=== PATIENT | female | born 1950 | race Caucasian/White ===

== ENCOUNTER 2022-05-14 14:15 | Emergency (ER) | payer OTHER, MEDICARE, SELFPAY ==
[2022-05-14 14:26] VITALS: BP 133/86; PULSE 79; RESP 18; TEMP 37; O2SAT 100; BMI 17.5
--- NOTE | 2022-05-14 15:27 | ED_ITS ---
HPI - General Adult General Time Seen by Provider: 15:28 Date Seen: 05/14/22 Chief complaint: Laceration/Wound Stated complaint: Cut on left leg Time Seen by Provider: 05/14/22 15:09 Source: patient Mode of arrival: ambulatory Limitations: no limitations History of Present Illness HPI narrative: Patient is a 68 year white female who is generally quite healthy who cut her skin on a wheelchair under anterior [place], had an avulsion of skin has some soft tissue swelling underneath consistent with bleeding she is able to ambulate without difficulty. She thinks she is up-to-date on tetanus we will confirm, no history of other significant illnesses she takes bone density medication as well as blood pressure pills Related Data Home Medications Medication Instructions Recorded Confirmed alendronate 70 mg tablet 70 mg PO .weekly 05/14/22 05/14/22 hydrochlorothiazide 25 mg tablet 25 mg PO DAILY 05/14/22 05/14/22 lisinopril 5 mg tablet 5 mg PO DAILY 05/14/22 05/14/22 Allergies Allergy/AdvReac Type Severity Reaction Status Date / Time No Known Drug Allergies Allergy Verified 05/14/22 14:30 Review of Systems Status of ROS: Reports: 6 or more systems reviewed and unremarkable except as noted in History and below PFSH PFS Social History Smoking Status: Current every day smoker What tobacco products do you use: cigarettes Do you use any of these nicotine containing products: None Second hand tobacco smoke exposure: No How often do you have a drink containing alcohol: 2-4 times a month How many standard drinks containing alcohol do you have on a typical day: 1 or 2 How often do you have six or more drinks on one occasion: Never AUDIT-C Alcohol total score: 2 Non-prescribed substance use: denies use service: No Exam Narrative: Exam Narrative: Objective: On the anterior [place] there is an avulsion of skin there is a small little flap remaining but I do not think it would cover the dime size opening, and I think if we tried to sew it would stretch to the point where the skin would and would not provide good closure. I think leaving it open to close by secondary intention would be the most reasonable course of action, will cover with Telfa gauze and keep covered for 2 days. Then may soak off the dressing and cover with a bandage, recheck with primary care in the next few days as needed Const: Vital Signs, click to edit/add: Vital Signs - 24 hr 05/14/22 14:26 Temperature 98.6 F Pulse Rate [Right Pulse Oximeter] 79 Respiratory Rate 18 Blood Pressure [Ri ght Upper Arm] 133/86 Pulse Oximetry 100 Oxygen Delivery Me thod Room Air Course Vital Signs Vital signs: Initial Vital Signs Temperature 98.6 F 05/14/22 14:26 Temperature Source Temporal Artery Scan 05/14/22 14:26 Pulse Rate 79 05/14/22 14:26 Respiratory Rate 18 05/14/22 14:26 Blood Pressure 133/86 05/14/22 14:26 Blood Pressure Mean 101 05/14/22 14:26 Blood Pressure Position Sitting 05/14/22 14:26 Pulse Oximetry 100 05/14/22 14:26 Oxygen Delivery Method 05/14/22 14:26 Vital Signs Temperature 98.6 F 05/14/22 14:26 Pulse Rate 79 05/14/22 14:26 Respiratory Rate 18 05/14/22 14:26 Blood Pressure 133/86 05/14/22 14:26 Pulse Oximetry 100 05/14/22 14:26 Oxygen Delivery Method 05/14/22 14:26 Temperature 98.6 F 05/14/22 14:26 Pulse Rate 79 05/14/22 14:26 Respiratory Rate 18 05/14/22 14:26 Blood Pressure 133/86 05/14/22 14:26 Pulse Oximetry 100 05/14/22 14:26 Oxygen Delivery Method 05/14/22 14:26 Discharge Plan Discharge Clinical Impression: Avulsion of skin Patient Disposition: Home, Self-Care Condition: Improved Additional Instructions: Keep the wound covered with the same dressing for 2 days, then may soak it off and a bath 1st soapy solution. Then may simply cover with a bandage, watch for redness infection, return to ED as needed, follow-up with primary care problems or concerns or not healing. Given the wound is fairly superficial I do not think she needs antibiotics at this time. Activity Level: Light activity Discharge Diet: Regular Prescriptions: No Action alendronate 70 mg tablet 70 mg PO .weekly Label Comments: TAKE 1 TAB BY MOUTH 1XWEEKLY IN MORNING ON EMPTY STOMACH W/ FULL GLASS OF WATER-DONT LIE DOWN X1 HR lisinopril 5 mg tablet 5 mg PO DAILY Label Comments: TAKE 1 TABLET BY MOUTH EVERY DAY hydrochlorothiazide 25 mg tablet 25 mg PO DAILY Label Comments: TAKE 1 TABLET BY MOUTH EVERY DAY Stand [facility]
== END 2022-05-14 15:45 | disposition home or self-care (01) ==
LOC: ED 15:44
PROVIDERS: Emergency Provider Family Medicine; PCP Family Medicine
DX: S81.802A Unspecified open wound, left lower leg, initial encounter (principal); W22.8XXA Striking against or struck by other objects, initial encounter
CPT/HCPCS: 99282